=== PATIENT | male | born 1940 | race Caucasian/White ===

== ENCOUNTER → 2025-03-27 11:26 | Outpatient (REF) | payer MEDICARE, OTHER, SELFPAY | LOC: REG 11:26 | PROVIDERS: ATTENDING PHYSICIAN Family Medicine; FAMILY PHYSICIAN Family Medicine | DX: R19.7 Diarrhea, unspecified (principal) | CPT/HCPCS: 87045; 87046; 87324; 87328; 87329; 87427; 87449; 89055 ==

== ENCOUNTER → 2025-05-21 08:17 | Outpatient (REF) | payer MEDICARE, OTHER, SELFPAY | LOC: REG 08:17 | PROVIDERS: ATTENDING PHYSICIAN Family Medicine | DX: R05.1 Acute cough (principal) | CPT/HCPCS: 71046 ==